=== PATIENT | female | born 1940 | race Caucasian/White ===

== ENCOUNTER 2019-04-25 07:57 | Day surgery (SDC) | payer MEDICARE, BC ==
[~2019-04-25] VITALS: Ht 167.6 cm; Wt 63.1 kg
[~2019-04-25 07:57] MED LIST: ALPRAZOLAM0.5 MG PO; CELE200 PO; CONEST1.25; CONEST1.25 PO; Celebrex200 MG PO; FOLATE PO; GABA100 PO; HYDACE10B PO; INS70/30PN SC; INSDET100; INSDET100 SC; IRON150C PO; LORA.5 PO; METF500; METF850; MIRALAX17 GM PO; Novolog100 UNIT/1 SC; PANT40; PANT40 PO; POLY17UD; PRIM250 PO; QUIN325; SPRYCEL PO; Sprycel20 MG PO
--- NOTE | 2019-04-25 08:56 | NUR ---
INTO SDS VIA WHEELCHAIR.Patient states colon prep results clear. History, Chart, Medications and Allergies reviewed before start of procedure.Lungs clear T/O to Auscultation. Patient confirms NPO status and agrees with scheduled surgery. Patient States Post-Procedure ride home has been arranged.
--- NOTE | 2019-04-25 10:49 | NUR ---
Discharge instructions reviewed with patient. Patient verbalizes understanding. Copy given to patient to take home. Discharged via wheelchair to private car for ride home.
== END 2019-04-25 22:40 | disposition home or self-care (01) ==
LOC: ORSCMMR 07:57 → ORD 09:00 → ORSCMMR 09:00
PROVIDERS: Internal Medicine Gastroenterology
PROC: 0DBK8ZX Excision of Ascending Colon, Via Natural or Artificial Opening Endoscopic, Diagnostic (ICD-10-PCS; principal; 2019-04-25 09:00)
PROC: 0DBL8ZX Excision of Transverse Colon, Via Natural or Artificial Opening Endoscopic, Diagnostic (ICD-10-PCS; principal; 2019-04-25 09:00)
PROC: 0DBM8ZX Excision of Descending Colon, Via Natural or Artificial Opening Endoscopic, Diagnostic (ICD-10-PCS; principal; 2019-04-25 09:00)
DX: Z12.11 Encounter for screening for malignant neoplasm of colon (principal); D12.2 Benign neoplasm of ascending colon; D12.3 Benign neoplasm of transverse colon; D12.4 Benign neoplasm of descending colon; K57.30 Diverticulosis of large intestine without perforation or abscess without bleeding; E11.9 Type 2 diabetes mellitus without complications; K21.9 Gastro-esophageal reflux disease without esophagitis; G25.0 Essential tremor; F41.9 Anxiety disorder, unspecified; Z85.6 Personal history of leukemia; Z79.4 Long term (current) use of insulin; Z79.899 Other long term (current) drug therapy
CPT/HCPCS: 88305; J2704; J7120

== ENCOUNTER → 2019-06-09 | Outpatient (CLI) | payer MEDICARE, BC | END | disposition home or self-care (01) | LOC: LAB EV 14:29 → LAB SHORT 14:29 | DX: R30.9 Painful micturition, unspecified (principal); Z90.711 Acquired absence of uterus with remaining cervical stump | CPT/HCPCS: 87086 ==

== ENCOUNTER → 2022-03-08 | Outpatient (CLI) | payer MEDICARE, BC | END | disposition home or self-care (01) | LOC: LAB SHORT 07:59 → PLD 07:59 | DX: L57.0 Actinic keratosis (principal); D04.5 Carcinoma in situ of skin of trunk | CPT/HCPCS: 88305 ==

== ENCOUNTER 2022-12-09 18:19 | Observation (INO) | payer MEDICARE, BC ==
[~2022-12-09] VITALS: Ht 167.6 cm; Wt 63.5 kg
[2022-12-09 18:52] LABS: BASOPHILS ABSOLUTE AUTO 0.03 K/mm3 (0.00-0.23); BASOPHILS PERCENT AUTO 1 % (0-2); EOSINOPHILS ABSOLUTE AUTO 0.13 K/mm3 (0.00-0.68); EOSINOPHILS PERCENT AUTO 2 % (0-6); Hematocrit 38.2 % (33.0-51.0); Hemoglobin 12.8 g/dL (11.5-16.0); IMMATURE GRAN ABSOLUTE AUTO 0.01 K/mm3 (0.00-0.10); IMMATURE GRAN PERCENT AUTO 0 % (0-1); LYMPHOCYTES ABSOLUTE AUTO 2.09 K/mm3 (0.84-5.20); LYMPHOCYTES PERCENT AUTO 38 % (21-46); MONOCYTES ABSOLUTE AUTO 0.75 K/mm3 (0.16-1.47); MONOCYTES PERCENT AUTO 14 % (4-13); Mean Corpuscular HGB Conc 33.5 g/dL (31.5-36.5); Mean Corpuscular Volume 87 fL (80-100); NEUTROPHILS ABSOLUTE AUTO 2.52 K/mm3 (1.96-9.15); NEUTROPHILS PERCENT AUTO 46 % (41-73); Platelet Count 211 K/mm3 (150-400); RDW Coefficient Variation 14.1 % (11.7-14.2); RDW Standard Deviation 44.7 fL (35.1-46.3); Red Blood Cell Count 4.41 M/mm3 (3.80-5.20); White Blood Cell Count 5.53 K/mm3 (4.00-11.30)
[2022-12-09 19:13] LABS: Albumin, Blood 3.7 g/dL (3.4-5.0); Albumin/Globulin Ratio 0.9 (0.8-1.8); Bilirubin, Total 0.3 mg/dL (0.1-1.0); Bun/Creatinine Ratio 42.4 (12.0-20.0); Calcium, Blood 10.1 mg/dL (8.5-10.1); Creatinine, Blood 0.9 mg/dL (0.40-1.00); Globulin, Blood 3.9 g/dL (2.2-4.0); Potassium, Blood 4.4 mmol/L (3.5-5.5); Total Protein, Blood 7.6 g/dL (6.4-8.2)
[2022-12-10 02:42] VITALS: BP 148/71
--- NOTE | 2022-12-10 05:22 | NUR ---
SPOKE WITH DR RENDON ABOUT PT HOME INSULIN. PT TAKES 16 U GLARGINE, NOT 60U ORDERED. PT ALSO TAKES 8 UNITS WITH MEALS, IF SHE EATS. PT HAS IMPLANT FOR CBG MONITORING THROUGH PHONE.
[2022-12-10 07:29] VITALS: BP 142/75
--- NOTE | 2022-12-10 10:57 | NUR ---
"Spiritual Care Attempted | Pt. request. Pt. is awake in her bed and graciously declined spiritual care. This hvac r tech will remain available should the Pt. have a change of heart."
[2022-12-10 16:03] VITALS: BP 139/74
--- NOTE | 2022-12-10 17:00 | NUR ---
SHIFT SUMMARY PT HAD NO ACUTE CHANGES THROUGHOUT THE SHIFT. SHE IS ALERT AND ORIENTED X4. PT IS CURRENTLY ON TELE WITH A HEART RATE OF 84. PT HAS STATED THAT HER BREATHING HAS "IMPROVED" SINCE YESTERDAY. O2 IS >90% ON R/A. THE PLAN IS FOR HER TO GO FOR ULTRASOUND GUIDED THORACENTESIS TOMORROW MORNING. PT IS INDEPENDENT IN ROOM AND AMBULATES TO THE RESTROOM WITHOUT ASSISTANCE. SHE HAS BEEN TOLERATING A GLUTEN FREE DIET& VOIDING APPROPRIATELY. SHE HAS BEEN EDUCATED ON THE USE OF HER CALL LIGHT AND IS ABLE TO UTILIZE IT APPROPRIATELY.
[2022-12-11 03:17] VITALS: BP 117/61
--- NOTE | 2022-12-11 04:49 | NUR ---
PT PLACED ON 2L NC FOR SLEEP
--- NOTE | 2022-12-11 05:46 | NUR ---
PT SLEPT WELL, O2 NC ON 2L
[2022-12-11 06:44] LABS: Base Excess Venous 6.8 mmol/L; Bicarbonate Venous 29.7 mmol/L (24.0-30.0); PCO2 Venous 47.7 mmHg (38-42); pH Blood Venous 7.42 (7.34-7.37)
[2022-12-11 07:03] VITALS: BP 135/79
[2022-12-11 07:04] LABS: International Normalized Ratio 1.02; Prothrombin Time Results 10.7 Sec (9.7-11.5)
[2022-12-11 07:18] LABS: Bun/Creatinine Ratio 36.9 (12.0-20.0); Calcium, Blood 9.8 mg/dL (8.5-10.1); Creatinine, Blood 0.65 mg/dL (0.40-1.00); Potassium, Blood 3.6 mmol/L (3.5-5.5)
--- NOTE | 2022-12-11 10:46 | NUR ---
NOTES: PATIENT LEFT THE ROOM AT AROUND 1040 TO IMAGING. PATIENT WAS TRANSPORTED VIA WHEELCHAIR.
--- NOTE | 2022-12-11 11:13 | NUR ---
NOTES: PATIENT BACK IN ROOM AT AROUND 1110 FROM IMAGING.
--- NOTE | 2022-12-11 14:39 | NUR ---
SHIFT/DISCHARGE SUMMARY: PATIENT A&OX4. CALM, PLEASANT AND COOPERATIVE c CARE. USES CALL LIGHT APPROPRIATELY AND ABLE TO MAKE NEEDS KNOWN. PER RN NOC BEDSIDE REPORT THIS AM PATIENT WAS PLACED ON O2 2L VIA NC LAST NIGHT D/T O2 DROPPED TO HIGH 80'S WHILE SLEEPING. PATIENT O2 WAS TITRATED TO 1L AT BEGINNING OF SHIFT AND SATING 92-95%. PATIENT WAS PLACED ON RA AT AROUND 1040. PATIENT O2 SAT HAS BEEN RANGING 92-94%, DENIES SOB, N/V, CP/PRESSURE, DIZZINESS AND GENERALIZED PAIN. PATIENT DID NOT HAD THORACENTISIS DONE, PER GALLERY OR MUSEUM ATTENDANT " ACCORDING TO RADILOGY THERE IS NOT ENOUGH FLUIDS IN LUNGS TO DRAIN SAFELY". DR. LAI WAS NOTIFIED c THE FINDINGS DURING ROUNDING. PATIENT AMBULATES TO BATHROOM AND BACK IN BED INDEPENDENTLY. BS RANGES 164-186, MEDICATED PER SLIDING COVERAGE. VITAL SIGNS REVIEWED. IV TO R WRIST AND R AC DC'D. UPDATE GIVEN TO [employer] PATIENT DAUGHTER LIBBY REGARDING PATIENT CONDITION AND DISCHARGE PLAN. PATIENT DISCHARGE HOME. DISCHARGE INSTRUCTION PACKET GIVEN TO PATIENT. EDUCATE PATIENT REGARDING ADMITTING DX, S/S, TX AND MEDICATIONS. PATIENT STATED UNDERSTANDING AND NO FURTHER QUESTIONS. PATIENT HAS NO NEW MEDICATION. ALL PATIENT PERSONAL BELONGINGS WERE SENT HOME c THE PATIENT. PATIENT LEFT THE ROOM AT AROUND 1435. PATIENT WAS TRANSPORTED VIA WHEELCHAIR BY ADMINISTRATIVE UNDERWRITER STAFF, OTIS TO PATIENT SPOUSE PRIVATE VEHICLE.
== END 2022-12-11 14:33 | disposition home or self-care (01) ==
LOC: ER 18:19 → MEDS 18:20 → ENPENDDIS 12-11 13:12 → MEDS 12-11 14:33
PROVIDERS: Emergency Medicine; Internal Medicine; ADMIT Student in an Organized Health Care Education/Training Program
DX: J90 Pleural effusion, not elsewhere classified (principal); E10.9 Type 1 diabetes mellitus without complications; C92.10 Chronic myeloid leukemia, BCR/ABL-positive, not having achieved remission; I71.40 Abdominal aortic aneurysm, without rupture, unspecified; I50.9 Heart failure, unspecified; Z88.8 Allergy status to other drugs, medicaments and biological substances; Z91.018 Allergy to other foods
CPT/HCPCS: 36415; 71045; 71046; 71275; 76604; 80048; 80053; 82803; 82947; 83880; 84443; 84484; 85025; 85610; 85730; 93005; 93010; 93306; 96372; 96374; 99285-25; A9270; G0378; J1650; J1815; J1940; Q9967

== ENCOUNTER → 2023-03-09 | Outpatient (CLI) | payer MEDICARE, BC | LOC: LAB SHORT 14:47 → LAB 14:47 | DX: N39.0 Urinary tract infection, site not specified (principal) | CPT/HCPCS: 87077; 87086; 87147; 87186 ==

== ENCOUNTER → 2023-03-29 | Outpatient (CLI) | payer MEDICARE, BC | END | disposition home or self-care (01) | LOC: LAB SHORT 12:12 → PLD 12:12 → LAB 12:12 | DX: D49.2 Neoplasm of unspecified behavior of bone, soft tissue, and skin (principal); C44.519 Basal cell carcinoma of skin of other part of trunk | CPT/HCPCS: 88305 ==

== ENCOUNTER 2023-05-09 13:25 | Emergency (ER) | payer MEDICARE, BC ==
[~2023-05-09] VITALS: Ht 167.6 cm; Wt 61.2 kg
[2023-05-09] MEDS ORDERED: PROP10 PO (13:58)
[2023-05-09 14:36] LABS: Hematocrit 44.6 % (33.0-51.0); Hemoglobin 14.5 g/dL (11.5-16.0); Mean Corpuscular HGB 28.4 pg (26.0-34.0); Mean Corpuscular HGB Conc 32.5 g/dL (31.5-36.5); Mean Corpuscular Volume 88 fL (80-100); Mean Platelet Volume 10.4 fL (9.1-12.4); Platelet Count 166 K/mm3 (150-400); RDW Coefficient Variation 16.8 % (11.7-14.2); RDW Standard Deviation 53.3 fL (35.1-46.3)
[2023-05-09 14:48] LABS: White Blood Cell Count 55.29 K/mm3 (4.00-11.30)
[2023-05-09 14:52] LABS: Albumin, Blood 3.6 g/dL (3.4-5.0); Albumin/Globulin Ratio 0.8 (0.8-1.8); Bilirubin, Total 0.3 mg/dL (0.1-1.0); Bun/Creatinine Ratio 24.2 (12.0-20.0); Calcium, Blood 9.6 mg/dL (8.5-10.1); Creatinine, Blood 0.87 mg/dL (0.40-1.00); Globulin, Blood 4.3 g/dL (2.2-4.0); Total Protein, Blood 7.9 g/dL (6.4-8.2)
[2023-05-09 15:01] LABS: BAND PERCENT MAN 7 % (0-8); BASOPHILS PERCENT MAN 0 % (0-2); EOSINOPHILS ABSOLUTE MAN 2.21 K/mm3 (0.00-0.68); EOSINOPHILS PERCENT MAN 4 % (0-6); LYMPHOCYTES ABSOLUTE MAN 3.31 K/mm3 (0.84-5.20); LYMPHOCYTES PERCENT MAN 6 % (21-46); METAMYELOCYTE PERCENT MAN 2 % (0-0); MONOCYTES ABSOLUTE MAN 4.42 K/mm3 (0.16-1.47); MONOCYTES PERCENT MAN 8 % (4-13); MYELOCYTE PERCENT MAN 2 % (0-0); NEUTROPHILS ABSOLUTE MAN 43.12 K/mm3 (1.96-9.15); SEG NEUTROPHILS PERCENT MAN 71 % (41-73); TOTAL CELLS COUNTED 100
[2023-05-09 16:07] LABS: Source, Urine Clean Catch
[2023-05-09 16:11] LABS: Appearance, Urine Clear (Clear); Bilirubin, Urine Neg (Neg); Blood, Urine Neg (Neg); Color, Urine Yellow (P-Yellow); Glucose Qualitative, Urine Neg (Neg); Ketones, Urine Neg (Neg); Leukocyte Esterase, Urine Neg (Neg); Nitrite, Urine Neg (Neg); Protein, Urine Neg (Neg); Urobilinogen, Urine NORM (Normal)
[2023-05-09] MEDS ORDERED: ONDA4ODT MM (16:59)
[2023-05-09 17:00] VITALS: BP 123/68
== END 2023-05-09 17:29 | disposition home or self-care (01) ==
LOC: ER 13:25
PROVIDERS: Emergency Medicine
DX: D72.829 Elevated white blood cell count, unspecified (principal); R11.2 Nausea with vomiting, unspecified; E86.0 Dehydration; E11.9 Type 2 diabetes mellitus without complications; Z88.8 Allergy status to other drugs, medicaments and biological substances; Z91.018 Allergy to other foods; Z79.899 Other long term (current) drug therapy; Z79.4 Long term (current) use of insulin
CPT/HCPCS: 74177; 80053; 81003; 85025; 96361; 96374; 99285-25; J1170; J7030; Q9967

== ENCOUNTER 2024-06-11 02:59 | Day surgery (SDC) | payer MEDICARE, BC ==
[~2024-06-11 02:59] MED LIST changes: -INSDET100 SC; +LEVEMIR100 UNIT/1 SC; +ONDA4ODT MM; +PROP10 PO
[2024-06-11] MEDS ORDERED: INCLISIRAN SODIUM 284 MG/1.5 ML SYRINGE SC SCH (06:00)
[2024-06-11] MEDS ORDERED: FURO40 PO (15:11)
[2024-06-11] MEDS ORDERED: POTCHL20ER PO (15:11)
[2024-06-11 15:16] VITALS: BP 141/76
--- NOTE | 2024-06-11 15:38 | NUR ---
NO SIGNS OR SYMPTOMS OF A REACTION. PT STATES SHE FEELS FINE.
== END 2024-06-11 15:36 | disposition home or self-care (01) ==
LOC: ATC 02:59
DX: E78.5 Hyperlipidemia, unspecified (principal); I25.10 Atherosclerotic heart disease of native coronary artery without angina pectoris; I11.0 Hypertensive heart disease with heart failure; I50.30 Unspecified diastolic (congestive) heart failure; E13.9 Other specified diabetes mellitus without complications; E89.1 Postprocedural hypoinsulinemia; C92.10 Chronic myeloid leukemia, BCR/ABL-positive, not having achieved remission; Z79.899 Other long term (current) drug therapy; Z88.5 Allergy status to narcotic agent; Z88.8 Allergy status to other drugs, medicaments and biological substances; Z85.3 Personal history of malignant neoplasm of breast; Z90.410 Acquired total absence of pancreas; Z90.49 Acquired absence of other specified parts of digestive tract
CPT/HCPCS: J1306

== ENCOUNTER 2024-09-11 09:10 | Day surgery (SDC) | payer MEDICARE, BC ==
[~2024-09-11 09:10] MED LIST changes: +FURO40 PO; +INCLISIRAN SODIUM 284 MG/1.5 ML SYRINGE SC SCH; +POTCHL20ER PO
[2024-09-11 13:21] VITALS: BP 119/68
== END 2024-09-11 13:32 | disposition home or self-care (01) ==
LOC: ATC 09:10
DX: E78.5 Hyperlipidemia, unspecified (principal); I25.10 Atherosclerotic heart disease of native coronary artery without angina pectoris; I11.0 Hypertensive heart disease with heart failure; I50.30 Unspecified diastolic (congestive) heart failure; E10.9 Type 1 diabetes mellitus without complications; Z79.4 Long term (current) use of insulin; Z79.899 Other long term (current) drug therapy; Z79.82 Long term (current) use of aspirin
CPT/HCPCS: 96372; J1306

== ENCOUNTER 2025-02-24 12:41 | Emergency (ER) | payer MEDICARE, BC ==
[~2025-02-24] VITALS: Ht 167.6 cm; Wt 65.8 kg
[~2025-02-24 12:41] MED LIST changes: -INCLISIRAN SODIUM 284 MG/1.5 ML SYRINGE SC SCH
[2025-02-24 13:24] LABS: Hematocrit 35.7 % (33.0-51.0); Hemoglobin 11.0 g/dL (11.5-16.0); Mean Corpuscular HGB Conc 30.8 g/dL (31.5-36.5); Mean Corpuscular Volume 94 fL (80-100); NRBC ABSOLUTE 0.27 K/mm3 (0.00-0.02); NRBC Auto 1.6 /100 WBC (0.0-0.2); Platelet Count 120 K/mm3 (150-400); RDW Coefficient Variation 17.1 % (11.7-14.2); RDW Standard Deviation 58.4 fL (35.1-46.3)
[2025-02-24 13:38] LABS: Alanine Aminotransfer (ALT/SGP 20.0 U/L (12-78); Albumin, Blood 3.6 g/dL (3.4-5.0); Albumin/Globulin Ratio 0.9 (0.8-1.8); Anion Gap 6.0 mmol/L (3-11); Aspartate Aminotrans (AST/SGOT 20.0 U/L (12-37); Bilirubin, Total 0.7 mg/dL (0.1-1.0); Blood Urea Nitrogen 20.0 mg/dL (8-24); CO2, Blood 30.0 mmol/L (21-32); Calcium, Blood 10.0 mg/dL (8.5-10.1); Chloride, Blood 101.0 mmol/L (98-108); Creatinine, Blood 0.79 mg/dL (0.40-1.00); Globulin, Blood 4.2 g/dL (2.2-4.0); Glucose, Blood 210.0 mg/dL (70-99); Potassium, Blood 4.4 mmol/L (3.5-5.5); Sodium, Blood 133.0 mmol/L (136-145); Total Protein, Blood 7.8 g/dL (6.4-8.2)
[2025-02-24 14:06] LABS: BAND PERCENT MAN 5 % (0-8); BASOPHILS ABSOLUTE MAN 0.33 K/mm3 (0.00-0.23); BASOPHILS PERCENT MAN 2 % (0-2); BLASTS PERCENT MAN 3 % (0-0); EOSINOPHILS ABSOLUTE MAN 0.16 K/mm3 (0.00-0.68); EOSINOPHILS PERCENT MAN 1 % (0-6); LYMPHOCYTES % ATYPICAL MANUAL 1 % (0-0); LYMPHOCYTES ABSOLUTE MAN 2.36 K/mm3 (0.84-5.20); LYMPHOCYTES PERCENT MAN 13 % (21-46); METAMYELOCYTE ABSOLUTE MAN 0.16 K/mm3 (0.00-0.00); METAMYELOCYTE PERCENT MAN 1 % (0-0); MONOCYTES ABSOLUTE MAN 1.18 K/mm3 (0.16-1.47); MONOCYTES PERCENT MAN 7 % (4-13); MYELOCYTE ABSOLUTE MAN 0.67 K/mm3 (0.00-0.00); MYELOCYTE PERCENT MAN 4 % (0-0); NEUTROPHILS ABSOLUTE MAN 11.50 K/mm3 (1.96-9.15); SEG NEUTROPHILS PERCENT MAN 63 % (41-73)
[2025-02-24 15:51] LABS: Source, Urine Clean Catch
[2025-02-24 16:27] LABS: Bilirubin, Urine Neg (Neg); Color, Urine Yellow (P-Yellow); Glucose Qualitative, Urine Neg (Neg); Ketones, Urine Neg (Neg); Leukocyte Esterase, Urine Neg (Neg); Protein, Urine Neg (Neg); Specific Gravity, Urine 1.025 (1.003-1.022); Urobilinogen, Urine NORM (Normal)
[2025-02-24 17:42] LABS: Red Blood Cells, Urine 0-2 /hpf (0-2); White Blood Cells, Urine 0-2 /hpf (0-5)
[2025-02-24 18:00] VITALS: BP 120/72
== END 2025-02-24 18:28 | disposition home or self-care (01) ==
LOC: ER 12:41
PROVIDERS: Emergency Medicine
DX: R06.02 Shortness of breath (principal); C92.10 Chronic myeloid leukemia, BCR/ABL-positive, not having achieved remission; E11.9 Type 2 diabetes mellitus without complications; K90.0 Celiac disease; Z91.018 Allergy to other foods; Z88.5 Allergy status to narcotic agent; Z88.8 Allergy status to other drugs, medicaments and biological substances; Z79.60 Long term (current) use of unspecified immunomodulators and immunosuppressants; Z79.4 Long term (current) use of insulin; Z79.899 Other long term (current) drug therapy
CPT/HCPCS: 36415; 71046; 80053; 81001; 83880; 84484; 85025; 93005; 93010; 99285-25

== ENCOUNTER 2025-03-11 00:20 | Day surgery (SDC) | payer MEDICARE, BC ==
[2025-03-11] MEDS ORDERED: INCLISIRAN SODIUM 284 MG/1.5 ML SYRINGE SC SCH (13:00)
[2025-03-11 13:52] VITALS: BP 126/68
== END 2025-03-11 13:59 | disposition home or self-care (01) ==
LOC: ATC 00:20
DX: E78.5 Hyperlipidemia, unspecified (principal); I25.10 Atherosclerotic heart disease of native coronary artery without angina pectoris; I11.0 Hypertensive heart disease with heart failure; I50.32 Chronic diastolic (congestive) heart failure; C92.10 Chronic myeloid leukemia, BCR/ABL-positive, not having achieved remission; E13.9 Other specified diabetes mellitus without complications; E89.1 Postprocedural hypoinsulinemia; Z90.410 Acquired total absence of pancreas; Z79.4 Long term (current) use of insulin; Z79.899 Other long term (current) drug therapy; Z88.8 Allergy status to other drugs, medicaments and biological substances; Z85.3 Personal history of malignant neoplasm of breast
CPT/HCPCS: 96372; J1306

== ENCOUNTER → 2025-04-04 | Outpatient (CLI) | payer MEDICARE, BC | LOC: LAB SHORT 16:22 → LAB 16:22 | DX: N39.0 Urinary tract infection, site not specified (principal); R31.9 Hematuria, unspecified | CPT/HCPCS: 87077; 87086; 87186 ==

== ENCOUNTER → 2025-04-10 | Outpatient (CLI) | payer MEDICARE, BC | LOC: LAB 12:42 → LAB SHORT 12:42 | DX: R30.0 Dysuria (principal) | CPT/HCPCS: 87077; 87086; 87186 ==

== ENCOUNTER → 2025-06-25 | Outpatient (CLI) | payer MEDICARE, BC | END | disposition home or self-care (01) | LOC: LAB 18:17 → LAB SHORT 18:17 | DX: N39.0 Urinary tract infection, site not specified (principal) | CPT/HCPCS: 87077; 87086; 87186 ==